=== PATIENT | female | born 1965 | race Caucasian/White ===

== ENCOUNTER 2024-03-11 05:58 | Day surgery (SDC) | payer OTHER, SELFPAY ==
--- NOTE | 2024-02-21 07:52 | HPS.HSE ---
Family Physician
-
Family Physician: NOT KNOW UNKNOWN - PT DOES
Chief Complaint
-
Persistent atrial fibrillation.
History of Present Illness
The patient is a 58 year old female presenting today for persistent atrial fibrillation. She reports a wide variety of symptoms associated with this arrhythmia, which include palpitations, dyspnea on exertion, headaches, and
lightheadedness. She did previously undergo multiple cardioversions in the past and pulmonary vein isolation in August 2023 due to her atrial fibrillation. She is on current pharmacological therapy with Amiodarone and Metoprolol Succinate. She
takes Xarelto for oral anticoagulation due to a CHADS-VASc of 4. She notes that her current symptoms greatly interfere with her activities of daily living and are overall impacting her quality of life. She is interested in pursuing pulmonary vein
isolation for further arrhythmia management. She denies any current complaints today such as chest pain or shortness of breath at rest, nausea, vomiting, diarrhea, dizziness, cough, sore throat, or fever.
Medical History
Past Medical History
Past Medical History: Reports Other
Additional Past Medical History:
1. Persistent atrial fibrillation, status post multiple cardioversions and pulmonary vein isolation 08/2023; pharmacological therapy with Amiodarone and Metoprolol Succinate, oral anticoagulation with Xarelto.
2. Dyslipidemia.
3. Congestive heart failure, preserved ejection fraction.
4. Moderate mitral regurgitation.
5. Moderate tricuspid regurgitation.
6. Asthma, mild and intermittent.
7. Calcified granulomas and pulmonary nodules on chest CT 08/2023; stable on follow-up chest CT 02/21/2024.
8. Obstructive sleep apnea, compliant with CPAP.
9. Chronic gastritis.
10. GI ulcer, remote, secondary to Nabumetone; on Lansoprazole.
11. Colon polyps.
12. Diverticulosis.
13. Irritable bowel syndrome with diarrhea.
14. TIA, 2014, without residual side effects.
15. Mild cognitive deficits.
16. Remote migraines.
17. Chronic low back pain with radiculopathy.
18. Osteoarthritis, status post left total knee arthroplasty 2017.
19. Hypothyroidism.
20. Anemia.
21. Depression.
22. Mild hyperbilirubinemia.
23. Morbid obesity, BMI 45.5; status post bariatric surgery 2016.
24. History of tobacco abuse.
Past Surgical History: Reports Other
Additional Past Surgical History:
1. Pulmonary vein isolation.
2. Multiple cardioversions.
3. Left total knee arthroplasty.
4. Bariatric surgery.
5. Right heel spur excision x2.
6. Left heel spur excision.
7. Colonoscopy.
8. Endoscopy.
Social History
Tobacco: Former Smoker (She is a former 1/2 pack per day cigarette smoker who quit tobacco altogether in 2013. )
Alcohol: None
Personal:
Living: Other (She lives with her in a 2 story home. )
Family History
Family History: Not pertinent
Allergies / Home Medications
Allergy/Medication List:
Home medications:
1. Albuterol sulfate 2 puffs inhaled every 4 hours as needed.
2. Amiodarone 200 mg p.o. daily.
3. Atorvastatin 20 mg p.o. every evening.
4. Bariatric multivitamins 1 capsule p.o. three times a day.
5. Bumex 1 mg p.o. twice a day.
6. Calcium citrate 800 mg p.o. three times a day.
7. Cholecalciferol 50 mcg p.o. daily.
8. Cyanocobalamin 1000 mcg p.o. three times a week.
9. Escitalopram oxalate 10 mg p.o. daily.
10. Fexofenadine 180 mg p.o. daily.
11. Gabapentin 600 mg p.o. three times a day.
12. Lansoprazole 30 mg p.o. twice a day.
13. Levothyroxine 25 mcg p.o. daily.
14. Metoprolol Succinate 25 mg p.o. twice a day.
15. Montelukast 10 mg p.o. every evening.
16. Nabumetone 750 mg p.o. twice a day.
17. Vitamin A 2400 mcg p.o. three times a week.
18. Xarelto 20 mg p.o. every evening.
Allergies: Percocet. Bactrim. Sulfa. Adhesive tape.
Review of Systems
-
A 12 point ROS was completed and negative except as noted: Yes
Physical Exam
Vital Signs
Blood pressure 127/92. Heart rate 81. Respirations 18. Pulse ox 97% on room air.
Height 5 feet, 6 inches. Weight 128 kg. BMI 45.5.
Physical Exam
General: Well Developed, Well Nourished and No Apparent Distress
HEENT: NormoCephalic, Moist mucous membranes, Atraumatic and PERRLA
Respiratory: Clear
Cardiac: Irregular Rhythm
GI: Soft, Non Tender, Non Distended and Other (Morbidly obese. )
Musculoskeletal: Normal Gait & Station
Skin: Warm and Dry
Neuro: AO x 3 and Nonfocal/grossly intact
Laboratory Results
-
DIAGNOSTIC STUDIES as of 02/21/2024: White blood cell count 4.9. Hemoglobin 11.1. Platelet count 222,000. PT 29.7. INR 2.83. Sodium 142. Potassium 4.0. BUN 17. Creatinine 0.9. Glucose 89. Calcium 8.8. Magnesium 2.4. Total bilirubin 1.5. AST 32. ALT
22. Albumin 3.6. Type and screen O positive.
DIAGNOSTIC STUDIES as of 02/28/2024: PT 23.7. INR 2.13. Sodium 143. Potassium 3.3. BUN 15. Creatinine 0.9. Glucose 70. Calcium 9.2. AST 29. ALT 20. Albumin 3.9.
EKG 02/21/2024: Atrial fibrillation. Nonspecific T wave abnormality. Prolonged QT.
Chest CT 02/21/2024: Normal, conventional pulmonary venous anatomy. Immediate branching of the right superior pulmonary vein with an inferior osteophyte branch representing the right middle lobe pulmonary vein. No left atrial filling defect/thrombus
identified. No change in small bilateral pulmonary nodules.
Nuclear stress test 08/05/2023: Normal myocardial perfusion with no evidence of scar or ischemia. Some apical artifact noted. Estimated ejection fraction is 61%.
Impression/Plan
-
IMPRESSION/PLAN:
1. Persistent atrial fibrillation: The patient is in need of pulmonary vein isolation with Dr. Vitaliy Acevedo on 03/11/2024. The benefits and risks of the procedure have been explained to the patient. The patient understands these risks and wishes to
proceed. She will not be required to undergo a pre-procedural transesophageal echocardiogram as she has been compliant with her home oral anticoagulation. She is aware to hold her Xarelto the night before her procedure. She was advised to take no
medications the morning of her procedure.
2. Elevated PT/INR: Repeat labs discussed with surgeon 02/28/2024. She may proceed with surgery at this time.
[2024-02-21 07:53] VITALS: BMI 45.6
[2024-02-21 08:28] LABS: % Eosinophils 3.9 % (0-6); % Immature Granulocytes 0.4 % (0-0.5); % Lymphocytes 14.1 % (20.5-51.1); % Monocytes 8.2 % (1.7-9.3); % Neutrophils 72.4 % (42.2-75.2); Absolute Basophils 0.1 10^3/uL (0-0.2); Absolute Eosinophils 0.2 10^3/uL (0-0.7); Absolute Lymphocytes 0.7 10^3/uL (1.2-3.4); Absolute Monocytes 0.4 10^3/uL (0.1-0.6); Absolute Neutrophils 3.5 10^3/uL (1.4-6.5); Hematocrit 36.3 % (37.0-47.0); Hemoglobin 11.1 g/dL (12.0-16.0); Mean Corp Hgb Conc. 30.6 g/dL (33.0-37.0); Mean Corpuscular Hgb 26.2 pg (27.0-31.0); Mean Corpuscular Volume 85.6 fL (81.0-99.0); Mean Platelet Volume 9.8 fL (7.4-10.4); Nucleated Red Blood Cells % 0 %; Platelet Count 222 10^3/uL (130-400); Red Blood Cell Count 4.24 10^6/uL (4.20-5.40); Red Cell Dist. Width 21.1 % (11.5-14.5); White Blood Cell Count 4.9 10^3/uL (4.8-10.8)
[2024-02-21 08:38] LABS: ALT (SGPT) 22 U/L (0-35); AST (SGOT) 32 U/L (14-36); Albumin 3.6 g/dl (3.5-5.0); Alkaline Phosphatase 109 U/L (38-126); Blood Urea Nitrogen 17 mg/dl (7-17); Calcium 8.8 mg/dl (8.4-10.2); Carbon Dioxide 32 mmol/L (22-30); Chloride 105 mmol/L (98-107); Estimated Creatinine Clearance 93 ml/min; Glucose 89 mg/dl (70-99); INR 2.83; Magnesium 2.4 mg/dl (1.6-2.3); PT 29.7 Sec (11.4-14.6); Sodium 142 mmol/L (135-145); Total Bilirubin 1.5 mg/dl (0.2-1.3); Total Protein 6.4 g/dl (6.3-8.2); eGFR > 60.00
[2024-02-28 08:40] LABS: INR 2.13; PT 23.7 Sec (11.4-14.6)
[2024-02-28 09:01] LABS: ALT (SGPT) 20 U/L (0-35); AST (SGOT) 29 U/L (14-36); Albumin 3.9 g/dl (3.5-5.0); Alkaline Phosphatase 95 U/L (38-126); Blood Urea Nitrogen 15 mg/dl (7-17); Calcium 9.2 mg/dl (8.4-10.2); Carbon Dioxide 34 mmol/L (22-30); Chloride 101 mmol/L (98-107); Estimated Creatinine Clearance 93 ml/min; Glucose 70 mg/dl (70-99); Sodium 143 mmol/L (135-145); Total Bilirubin 1.2 mg/dl (0.2-1.3); Total Protein 6.7 g/dl (6.3-8.2); eGFR > 60.00
[2024-02-28 09:20] LABS: Potassium 3.3 mmol/L (3.5-5.1)
[2024-03-11] VITALS (22 sets, daily range): BP systolic 87–116; BP diastolic 48–73; PULSE 60; BMI 43.8
[2024-03-11 08:53] LABS: ACT-LR - POC 306 Seconds (116-155)
[2024-03-11 09:08] LABS: ACT-LR - POC 350 Seconds (116-155)
[2024-03-11 09:34] LABS: ACT-LR - POC 392 Seconds (116-155)
[2024-03-11 10:41] LABS: ACT-LR - POC 366 Seconds (116-155)
[2024-03-11 11:03] LABS: ACT-LR - POC 363 Seconds (116-155)
[2024-03-11 11:18] LABS: ACT-LR - POC 171 Seconds (116-155)
--- NOTE | 2024-03-11 12:07 | ITS.CL.ABL ---
Pr Intern - Ablation
Ablation
Procedure Report:
Primary Performance Improvement Specialist: Elijah Mendes DO
Procedure Date: 03/11/2024
Patient History:
Ms. Martines is a pleasant 58 year old female with a past medical history significant for persistent AF (s/p cryo PVI 08/2023) with recurrence, history of TIA, CRISTOPHER, dyslipidemia, obesity, prior gastric bypass who presents with symptomatic persistent AF
despite AAM.
See H&P for complete details.
Indication:
Symptomatic persistent AF
Recurrence of AF despite anti-arrhythmic
Recurrence post PVI
Arrhythmia Specific History:
Prior Medical Therapies for Rate and Rhythm Control:
X Beta-moises
[ ] Calcium channel-moises
X Amiodarone
[ ] Dronederone
X Sotalol
[ ] Flecainide
[ ] Dofetilide
[ ] Options limited by bradycardia
[ ] Options limited by comorbid renal disease
Prior Procedural Therapies for AF/AFL:
X Cardioversion
X Pulmonary Vein Isolation
[ ] Posterior Wall Isolation
[ ] Additional lines (Specify)
[ ] Surgical Mccarty-MAZE or PVI (Specify)
Procedure Performed:
X AF ablation procedure (10992) -- includes LA/CS pacing, trans-septal, 3D mapping, + ICE
[ ] +IV drug (32083)
[ ] +Other Arrhythmia (33570)
X +Other AF Line/ablation (64835) -- Posterior Wall Isolation
Risks and expected recovery has been explained in detail. Alternative options have been explored, and in a shared-decision making fashion we have decided that this was the most appropriate procedure.
Method
NPO status confirmed. Grounding pad applied. Defibrillator pads applied. Continuous surface ECG, pulse oximetry, and blood pressure were monitored. Procedure was performed under general anesthesia, with anesthesia services.
Both groins were clipped, prepped with Chloraprep, and draped in sterile fashion. Time out was called. Local anesthesia administered with bupivacaine. The right and left femoral veins were accessed for catheter placement, using ultrasound guidance,
micro-puncture needle/wire, and modified seldinger technique. 3 sheaths were placed. The following catheters were used:
[ ] Tacticath SE (D/F Curve) ablation catheter
X Viewflex 9Fr ICE catheter
X Inquiry decapolar 6Fr diagnostic catheter
[ ] CRD Hex 6Fr
[ ] Arctic Front Advance Cryoballoon ([ ]28mm[ ]23mm)
[ ] Achieve Advance mapping catheter ([ ]15mm[ ]20mm)
X FlexCath Contour 10 Fr with PulseSelect PFA Catheter
X Advisor HD Grid Mapping Catheter, SE
[ ] AcusRenrenmoney AcuNav 8 Fr ICE catheter
[ ]Other: [ ]
Intracardiac ultrasound (ICE) was carefully advanced into the right atrium to guide sheath placement over a J-wire, catheter placement, guide trans-septal puncture, identify potential complications, identify anatomic structures and ensure proper
contact between ablation catheter and tissue.
Heparin was given prior to trans-septal puncture. Heparin was given to achieve and maintain a target ACT of 300-400 seconds throughout the procedure.
Trans-septal access was performed under ICE guidance. The trans-septal puncture was performed with a SafeSept wire through a Brockenbrough needle assembly through the steerable sheath. The wire was visualized as it entered the LSPV and system
advanced under ICE guidance and fluoroscopy into the LA. The Brockenbrough needle assembly, SafeSept wire and sheath dilator were removed under negative pressure. LA pressure was measured and recorded.
ICE and 3D mapping was performed to identify relevant cardiac structures. A careful 3D map was created to assess for regions of low-voltage and abnormal electrogram signals using HD grid mapping catheter and PulseSelect catheter. Additional mapping
was performed as outlined below.
Voltage was present near each PV/WACA. Prior to ablation, glycopyrrolate was provided. PulseSelect catheter was advanced over J-wire to the ostium of each vein. Pulmonary vein isolation was performed with ostial and antral lesions in a
circumferential manner. Contact was visualized via EAM, ICE, fluoroscopy, and EGM signals. Posterior wall isolation was performed by anchoring the J-wire within the pulmonary vein and placing the PulseSelect catheter in contact with the posterior
wall as visualized by aforementioned methods. Following completion of ablation lesions, sinus rhythm was restored with a 200J synchronized DCCV and a post-ablation voltage/activation map was performed in sinus rhythm. Additional areas were noted to
remain connected (LSPV/LIPV maulik along with superior aspect of the posterior wall). PFA was performed at these areas. Entrance and exit block were confirmed for each vein and the posterior wall.
Catheter and sheath were removed from the left atrium and post-ablation intracardiac echo evaluation was consistent with pre-ablation with no changes and no pericardial effusion and there is no left atrial thrombus or left ventricle thrombus seen.
Electrophysiology study was performed. Hemostasis was obtained with figure of 8 stitch for each groin and with manual pressure. Protamine was used for reversal.
Estimated Blood Loss
10 mL
Complications
None
Fluoroscopy: 8.3 minutes; 22.56 mGy; DAP 5.97
Baseline Intervals:
AF
QRS: 101 ms
QT: 341 ms
QTc: 414 ms
R-R: 720 ms
Post-Procedure Intervals:
IL: 178 ms
QRS: 106 ms
QT: 457 ms
QTc: 466 ms
A-A: 967 ms
R-R: 967 ms
AVWB: 430 ms
AVERP: 600/260 ms
Recommendations
- Bedrest with straight-leg precautions as ordered
- Admit with anticipate discharge home tomorrow after overnight observation
- Resume home medications as indicated; continue amiodarone for 3 mo and consider discontinuation at that time with primary cardiogist
- Ok to resume anticoagulation tonight if patient and groin sites stable
- PPI daily for 30 days
- Plan for follow-up in office in 4-6 weeks
Vitaliy Acevedo DO
Clinical Cardiac Content Management Specialist
cc: Elijah Mendes DO; Gerson Chaudhry DO
[2024-03-11 12:43] LABS: ACT-LR - POC > 397 Seconds (116-155)
[2024-03-11 12:43] LABS: ACT-LR - POC > 397 Seconds (116-155)
[2024-03-11] MEDS: SINGULAIR PO (15:06)
[2024-03-11] MEDS: LEXAPRO PO (15:06)
[2024-03-11] MEDS: CLARITIN PO (15:06)
--- NOTE | 2024-03-11 16:02 | CM ---
Chart reviewed. Patient is independent of ADLS, lives with her in a 2 STH, 7 GURMEET, 0 DME. Plan is for the patient to return home. CM to follow
[2024-03-11] MEDS: NEURONTIN 600 MG PO ×2 (17:54→22:17)
[2024-03-11] MEDS: BUMEX 1 MG PO (17:54)
[2024-03-11] MEDS: XARELTO 20 MG PO (17:55)
--- NOTE | 2024-03-11 19:15 | PTCARENOTE ---
Pt received post PVI. Pt sleepy but denied any discomfort. Bilateral femoral vein sites with dry and intact dressings, figure of eight sutures removed without problem, no sign of bleeding or hematoma. Pt OOB to chair, voiding without difficulty.
Telemetry shows sinus rhythm.
[2024-03-11] MEDS: TOPROL XL 25 MG PO (19:40)
[2024-03-11] MEDS: RELAFEN 750 MG PO (19:40)
[2024-03-11] MEDS: PREVACID 30 MG PO (22:17)
[2024-03-11] MEDS: LIPITOR 20 MG PO (22:17)
[2024-03-11] MEDS: SYNTHROID 25 MCG PO (22:17)
--- NOTE | 2024-03-11 23:13 | PTCARENOTE ---
Pt rec'd at change of shift oob in recliner chair with legs elevated. B/l groin sites with DDI, no change at HS assessment. Pulses by doppler.
CPAP applied by rsp at HS. Sinus on telemetry.
[2024-03-12 00:38] VITALS: PULSE 64
[2024-03-12 03:52] VITALS: BP 105/74
[2024-03-12 04:40] LABS: Hemoglobin 11.2 g/dL (12.0-16.0); Mean Corp Hgb Conc. 31.1 g/dL (33.0-37.0); Mean Corpuscular Volume 86.7 fL (81.0-99.0); Mean Platelet Volume 9.6 fL (7.4-10.4); Platelet Count 184 10^3/uL (130-400); Red Blood Cell Count 4.15 10^6/uL (4.20-5.40); Red Cell Dist. Width 21.2 % (11.5-14.5); White Blood Cell Count 6.5 10^3/uL (4.8-10.8)
[2024-03-12 05:07] LABS: Blood Urea Nitrogen 19 mg/dl (7-17); Calcium 8.7 mg/dl (8.4-10.2); Carbon Dioxide 28 mmol/L (22-30); Chloride 98 mmol/L (98-107); Estimated Creatinine Clearance 117 ml/min; Glucose 135 mg/dl (70-99); Magnesium 2.4 mg/dl (1.6-2.3); Potassium 3.8 mmol/L (3.5-5.1); Sodium 138 mmol/L (135-145); eGFR > 60.00
[2024-03-12 07:22] VITALS: BP 99/63
--- NOTE | 2024-03-12 07:36 | W.PN.CARDCBS ---
Addendum entered and electronically signed by Vitaliy Acevedo DO 03/12/24 10:17:
I saw and examined the patient.
The Hull Grinder's note was reviewed and I agree with the note.
Comment:
Patient seen and examined. Patient doing well post-PVI and PW ablation for AF. No complaints. Tele SR.
NAD< AOX3
S1, S2, RRR
CTAB, non labored, no wheeze
SNTND Bsx4
b/l groins c/d/i no HT< soft
Stable for DC from CV standpoint
Continue OAC uninterrupted
Continue amiodarone, can reduce/DC at 3 mo natalie
Follow-up with Dr. Mendes for CV care
Original Note:
Today's Communication / Plan
-
stable for d/c home
Impression / Plan
-
PCP: Gerson Chaudhry DO
CDY: Elijah Mendes DO
58 year old female with a past medical history significant for persistent AF (s/p cryo PVI 08/2023) with recurrence, history of TIA, CRISTOPHER, dyslipidemia, obesity, prior gastric bypass who presents with symptomatic persistent AF despite AAM.
Impression:
Recurrent symptomatic persistent Afib
prior PVI 09/16
post PFA PVI and PW ablation 03/11/24
HLD
Hypothyroidism
TIA 2013
Asthma
CRISTPOHER/CPAP
prior gastric bypass
SHOLA
chronic diastolic HFpEF
Moderate MR/TR
Morbid obesity
Plan:
post ablation feels well
groins stable
tele SR 1deg AVB
OAC Xarelto
continue amiodarone and toprol
continue PPI daily x 30 days
Activity restrictions reviewed
f/u Dr. Mendes 2 mo
home today
Progress Note - Band Master
Subjective
Date of Service: March 12, 2024
no cp, sob
Objective
Labs:
03/12/24 04:02
03/12/24 04:02
Labs
Hgb 11.2 g/dL (12.0-16.0) L 03/12/24 04:02
Hct 36.0 % (37.0-47.0) L 03/12/24 04:02
Plt Count 184 10^3/uL (130-400) 03/12/24 04:02
PT 23.7 Sec (11.4-14.6) H 02/28/24 08:15
INR 2.13 02/28/24 08:15
Sodium 138 mmol/L (135-145) 03/12/24 04:02
Potassium 3.8 mmol/L (3.5-5.1) 03/12/24 04:02
BUN 19 mg/dl (7-17) H 03/12/24 04:02
Creatinine 0.7 mg/dL (0.6-1.0) 03/12/24 04:02
Glucose 135 mg/dl (70-99) H 03/12/24 04:02
Vital Signs and I&O:
Vital Signs
Temp Pulse Resp BP Pulse Ox
97.6 F 61 20 105/74 98
03/12/24 03:52 03/12/24 03:52 03/12/24 03:52 03/12/24 03:52 03/12/24 03:52
Vital Signs
Temp Pulse Resp BP Pulse Ox
97.6 F 61 20 105/74 98
03/12/24 03:52 03/12/24 03:52 03/12/24 03:52 03/12/24 03:52 03/12/24 03:52
Intake & Output
03/10/24 03/11/24 03/12/24 03/13/24
06:59 06:59 06:59 06:59
Intake Total 2099 / 2099
Output Total 500 / 500
Balance 1600 / 1600
Physical Exam
Physical Exam
NAD< AOX3
S1, S2, RRR
CTAB, non labored, no wheeze
SNTND Bsx4
b/l groins c/d/i no HT< soft
[2024-03-12] MEDS: CLARITIN 10 MG PO (08:39)
[2024-03-12] MEDS: SINGULAIR 10 MG PO (08:39)
[2024-03-12] MEDS: PACERONE 200 MG PO (08:40)
[2024-03-12] MEDS: PREVACID 30 MG PO (08:40)
[2024-03-12] MEDS: LEXAPRO 10 MG PO (08:40)
[2024-03-12] MEDS: TOPROL XL 25 MG PO (08:40)
[2024-03-12] MEDS: NEURONTIN 600 MG PO (08:40)
[2024-03-12] MEDS: BUMEX 1 MG PO (08:40)
[2024-03-12] MEDS: RELAFEN PO (08:43)
--- NOTE | 2024-03-12 10:09 | W.DS.TRANS ---
DC Summary - Branch Account Executive
-
Discharge Instructions:
Discharge Diagnosis/Procedures AFib, s/p ablation
Diet Low Cholesterol
Driving Restrictions No driving for 24 hours
Instructions:
Stand-Alone Forms: DC Instructions- Cath/EP Lab
Return to Work
Changes to Home Medications: No
Discharge Medications:
DC Medications w/original date entered in [facility]
atorvastatin 20 mg tablet 20 mg PO HS High Cholesterol 09/04/23
calcium citrate 200 mg (950 mg) tablet 800 mg PO TID Supplement 09/04/23
cholecalciferol (vitamin D3) 50 mcg (2,000 unit) tablet (Vitamin D3) 50 mcg PO DAILY Supplement 09/04/23
cyanocobalamin (vitamin B-12) 1,000 mcg tablet (Vitamin B-12) 1,000 mcg PO .3 TIMES A WEEK Supplement 09/04/23
escitalopram oxalate 10 mg tablet 10 mg PO DAILY 09/04/23
fexofenadine 180 mg tablet 180 mg PO DAILY Allergies 09/04/23
gabapentin 600 mg tablet 600 mg PO TID 09/04/23
lansoprazole 30 mg capsule,delayed release 30 mg PO BID Gastrointestinal Issue 09/04/23
levothyroxine 25 mcg tablet 25 mcg PO HS Thyroid 09/04/23
montelukast 10 mg tablet 10 mg PO DAILY Allergies 09/04/23
demcygam-sjjazlya-uedl 45 mg-folic acid 800 mcg-vit K 120 mcg capsule (Bariatric Multivitamins) 1 cap PO TID Supplement 09/04/23
nabumetone 750 mg tablet 750 mg PO BID Pain 09/04/23
rivaroxaban 20 mg tablet (Xarelto) 20 mg PO QPM Heart Disease/Condition 09/04/23
vitamin A 2,400 mcg capsule 2,400 mcg PO .3 TIMES A WEEK Supplement 09/04/23
amiodarone 200 mg tablet 200 mg PO DAILY Heart Disease/Condition 02/17/24
bumetanide 1 mg tablet 1 mg PO BID Fluid Retention/Swelling 02/17/24
metoprolol succinate 25 mg tablet,extended release 24 hr 25 mg PO BID Heart Disease/Condition 02/17/24
albuterol sulfate 90 mcg/actuation aerosol inhaler 2 puff inhalation Q4H PRN dyspnea 02/21/24
Home Medication Changes
Pending Results: No
--- NOTE | 2024-03-12 10:45 | PTCARENOTE ---
Pt seen by and Jodie Boss NP. Telemetry and IV device removed. Discharge instructions reviewed with pt regarding activity and driving restrictions, wound care, medications and their possible side effects, reporting cares and concerns and
follow up appt's. Excellent understanding verbalized. Pt escorted out via wheelchair and discharged to home.
== END 2024-03-12 10:48 | disposition home or self-care (01) ==
LOC: CATH 05:58
PROVIDERS: Nurse Practitioner; ATTENDING PHYSICIAN Internal Medicine Cardiovascular Disease; FAMILY PHYSICIAN Family Medicine; OTHER PHYSICIAN Internal Medicine Cardiovascular Disease
DX: I48.19 Other persistent atrial fibrillation (principal); E78.5 Hyperlipidemia, unspecified; I50.9 Heart failure, unspecified; I08.1 Rheumatic disorders of both mitral and tricuspid valves; J45.909 Unspecified asthma, uncomplicated; O28.8 Other abnormal findings on antenatal screening of mother; R91.8 Other nonspecific abnormal finding of lung field; G47.33 Obstructive sleep apnea (adult) (pediatric); K29.50 Unspecified chronic gastritis without bleeding; Z87.19 Personal history of other diseases of the digestive system; K57.90 Diverticulosis of intestine, part unspecified, without perforation or abscess without bleeding; K58.9 Irritable bowel syndrome, unspecified; Z86.73 Personal history of transient ischemic attack (TIA), and cerebral infarction without residual deficits; G89.29 Other chronic pain; G43.909 Migraine, unspecified, not intractable, without status migrainosus; M19.90 Unspecified osteoarthritis, unspecified site; E03.9 Hypothyroidism, unspecified; D64.9 Anemia, unspecified; E66.01 Morbid (severe) obesity due to excess calories; Z68.42 Body mass index [BMI] 45.0-49.9, adult; Z98.84 Bariatric surgery status; Z87.891 Personal history of nicotine dependence; E80.6 Other disorders of bilirubin metabolism; F32.A Depression, unspecified; Z79.01 Long term (current) use of anticoagulants; Z79.899 Other long term (current) drug therapy; Z79.890 Hormone replacement therapy
CPT/HCPCS: C1732 ×2; C1894; C1769; C1759; 36415; 75572; 76937; 80048; 80053; 83735; 85025; 85027; 85347; 85610; 86850; 86900; 86901; 93005; 93655; 93656; 94002; 94660; Q9967